=== PATIENT | female | born 1930 | race Caucasian/White ===

== ENCOUNTER 2018-10-25 19:43 | Inpatient (IN) | payer BC ==
[~2018-10-25] VITALS: Ht 162.6 cm; Wt 75.7 kg
[2018-10-25 19:44] VITALS: BP_SYST 134
[2018-10-25] MEDS ORDERED: NACL 0.9% 1,000 ML IV ONE (22:05)
[2018-10-25] MEDS ORDERED: LevALBUTEROL HCL 1.25 MG/0.5 ML *CONC.* VIAL.NEB (XOPENEX CONC.) INH ONE (22:15)
[2018-10-25 22:54] LABS: BASOPHILS # (AUTO) 0.1 K/uL (0.0-0.2); BASOPHILS % (AUTO) 0.3 % (0.0-2.0); HEMATOCRIT 33.3 % (36-48); LYMPHOCYTES # (AUTO) 1.6 K/uL (1.0-5.5); MEAN CORPUSCULAR HEMOGLOBIN 30 pg (27-31); MEAN CORPUSCULAR HGB CONC 33 % (32-36); MEAN CORPUSCULAR VOLUME 91 fL (79.0-98.0); MONOCYTES # (AUTO) 1.1 K/uL (0.0-1.0); MONOCYTES % (AUTO) 6.4 % (1.7-9.3); NEUTROPHILS # (AUTO) 14.5 K/uL (1.8-7.7); NEUTROPHILS % (AUTO) 84.3 % (40.0-70.0); PLATELET COUNT (AUTO) 507 K/uL (130-430); RED BLOOD CELL COUNT(AUTO) 3.67 MIL/uL (4.2-6.2); RED CELL DISTRIBUTION WIDTH 12.4 % (9.0-15.0); WHITE BLOOD COUNT (AUTO) 17.3 K/uL (4.8-10.8)
[2018-10-25 23:10] LABS: ALANINE AMINOTRANSFERASE 4 U/L (12-78); ALBUMIN 2.2 g/dL (3.4-4.8); ANION GAP 11 (5-15); ASPARTATE AMINOTRANSFERASE 12 U/L (10-37); CALCIUM 8.6 mg/dL (8.4-11.0); CHLORIDE 104 mmol/L (98-107); CREATININE 1.36 mg/dL (0.55-1.30); GLUCOSE 133 mg/dL (70-99); SODIUM SERUM 143 mmol/L (136-145); TOTAL BILIRUBIN 0.8 mg/dL (0.0-1.0); UREA NITROGEN, BLOOD 23 mg/dL (8-21)
[2018-10-25 23:13] LABS: POTASSIUM 2.4 mmol/L (3.5-5.1)
[2018-10-25 23:21] LABS: INR 1.1 (0.8-1.2); PROTHROMBIN TIME 11.5 SECS (9.5-12.5)
[2018-10-25] MEDS ORDERED: KCL 20 mEq in 100 mL (PREMIX) 100 ML IV ONE (23:45)
[2018-10-25] MEDS ORDERED: ASPI-1153 PO (23:56)
[2018-10-25] MEDS ORDERED: LORA-258 PO ×3 (23:56)
[2018-10-25] MEDS ORDERED: LEVO112T2 PO (23:56)
[2018-10-25] MEDS ORDERED: FURO-150 PO (23:56)
[2018-10-25] MEDS ORDERED: RANI-362 PO (23:56)
[2018-10-25] MEDS ORDERED: SIMV40TA2 PO (23:56)
[2018-10-25] MEDS ORDERED: COR3.125 PO (23:56)
[2018-10-25] MEDS ORDERED: CLOP300T2 PO (23:56)
[2018-10-25] MEDS ORDERED: PRO20 PO (23:56)
[2018-10-26] VITALS (7 sets, daily range): BP systolic 104–134
[2018-10-26] MEDS ORDERED: LEVOFLOXACIN 500 MG/D5W 100 ML IV ONE
[2018-10-26] MEDS ORDERED: POTASSIUM CHLORIDE 20 MEQ/PKT PACKET PO ONE (00:15)
[2018-10-26] MEDS ORDERED: LORazepam 1 MG TABLET PO ONE (00:30)
[2018-10-26] MEDS ORDERED: ONDANSETRON HCL 4 MG/2 ML VIAL IVP PRN (00:45)
[2018-10-26] MEDS ORDERED: LEVOFLOXACIN 500 MG/D5W 100 ML IV SCH (00:45)
[2018-10-26] MEDS ORDERED: ALBUTEROL SULFATE 0.083% 2.5 MG/3 ML VIAL.NEB INH PRN (00:45)
[2018-10-26] MEDS ORDERED: MORPHINE 4 MG/ML INJ. SYRINGE IVP PRN (00:45)
[2018-10-26] MEDS ORDERED: POTASSIUM CHLORIDE 20 MEQ TAB.PRT.SR PO ONE ×2 (01:30→11:30)
[2018-10-26] MEDS ORDERED: VANCOMYCIN HCL 1,000 MG in NS 250 ML IV ONE (01:30)
[2018-10-26] MEDS ORDERED: VANCOMYCIN HCL 1000 MG/VIAL IV ONE (02:45)
[2018-10-26] MEDS: LEVOTHYROXINE SODIUM 0.112 MG TABLET PO SCH (06:37)
[2018-10-26 08:12] LABS: BASOPHILS # (AUTO) 0.3 K/uL (0.0-0.2); BASOPHILS % (AUTO) 2.4 % (0.0-2.0); EOSINOPHILS % (AUTO) 0.3 % (0.0-4.0); HEMATOCRIT 29.2 % (36-48); LYMPHOCYTES # (AUTO) 1.9 K/uL (1.0-5.5); LYMPHOCYTES % (AUTO) 12.9 % (20.5-51.5); MEAN CORPUSCULAR HEMOGLOBIN 31 pg (27-31); MEAN CORPUSCULAR HGB CONC 34 % (32-36); MEAN CORPUSCULAR VOLUME 92 fL (79.0-98.0); MONOCYTES # (AUTO) 0.7 K/uL (0.0-1.0); MONOCYTES % (AUTO) 4.9 % (1.7-9.3); NEUTROPHILS # (AUTO) 11.6 K/uL (1.8-7.7); PLATELET COUNT (AUTO) 426 K/uL (130-430); RED BLOOD CELL COUNT(AUTO) 3.19 MIL/uL (4.2-6.2); RED CELL DISTRIBUTION WIDTH 12.5 % (9.0-15.0); WHITE BLOOD COUNT (AUTO) 14.5 K/uL (4.8-10.8)
[2018-10-26 08:21] LABS: ANION GAP 10 (5-15); CALCIUM 8.3 mg/dL (8.4-11.0); CHLORIDE 106 mmol/L (98-107); CREATININE 1.33 mg/dL (0.55-1.30); GLUCOSE 98 mg/dL (70-99); SODIUM SERUM 143 mmol/L (136-145); UREA NITROGEN, BLOOD 25 mg/dL (8-21)
[2018-10-26 08:32] LABS: ALBUMIN 1.9 g/dL (3.4-4.8); ASPARTATE AMINOTRANSFERASE 12 U/L (10-37); TOTAL BILIRUBIN 0.7 mg/dL (0.0-1.0)
[2018-10-26 08:43] LABS: ALANINE AMINOTRANSFERASE 5 U/L (12-78)
[2018-10-26] MEDS: CLOPIDOGREL BISULFATE 75 MG TABLET PO SCH (09:37)
[2018-10-26] MEDS: ASPIRIN 81 MG TABLET(ECOTRIN) PO SCH (09:37)
[2018-10-26] MEDS: CARVEDILOL 3.125 MG TABLET (COREG) PO SCH (09:37)
[2018-10-26] MEDS: FLUoxetine HCL 20 MG CAPSULE (PROzac) PO SCH (09:38)
[2018-10-26] MEDS: FUROSEMIDE 20 MG TABLET PO SCH (09:38)
[2018-10-26] MEDS: LORazepam 1 MG TABLET PO SCH ×2 (09:39→20:11)
[2018-10-26 09:41] LABS: NEUTROPHILS % (AUTO) 79.5 % (40.0-70.0)
[2018-10-26] MEDS ORDERED: POTASSIUM CHLORIDE 40 MEQ in NS 250 ML IV ONE (18:30)
[2018-10-26] MEDS: SIMVASTATIN 40 MG TABLET PO SCH (20:10)
[2018-10-26] MEDS: LEVOFLOXACIN 250 MG/D5W 50 ML IV SCH (20:17)
[2018-10-27] MEDS ORDERED: VANCOMYCIN HCL 1 GM/NS PREMIX 250 ML IV ONE (06:15)
[2018-10-27] MEDS: LEVOTHYROXINE SODIUM 0.112 MG TABLET PO SCH (06:25)
[2018-10-27 06:46] LABS: BASOPHILS % (AUTO) 0.4 % (0.0-2.0); EOSINOPHILS # (AUTO) 0.1 K/uL (0.0-0.4); HEMATOCRIT 27.7 % (36-48); HEMOGLOBIN 9.4 g/dL (12.0-16.0); LYMPHOCYTES # (AUTO) 1.7 K/uL (1.0-5.5); LYMPHOCYTES % (AUTO) 15.3 % (20.5-51.5); MEAN CORPUSCULAR HEMOGLOBIN 31 pg (27-31); MEAN CORPUSCULAR HGB CONC 34 % (32-36); MEAN CORPUSCULAR VOLUME 92 fL (79.0-98.0); MONOCYTES % (AUTO) 9.1 % (1.7-9.3); NEUTROPHILS % (AUTO) 74.2 % (40.0-70.0); PLATELET COUNT (AUTO) 420 K/uL (130-430); RED BLOOD CELL COUNT(AUTO) 3.02 MIL/uL (4.2-6.2)
[2018-10-27 06:57] LABS: WHITE BLOOD COUNT (AUTO) 10.8 K/uL (4.8-10.8)
[2018-10-27 07:03] LABS: ANION GAP 9 (5-15); CALCIUM 8.4 mg/dL (8.4-11.0); CHLORIDE 108 mmol/L (98-107); CREATININE 1.23 mg/dL (0.55-1.30); GLUCOSE 96 mg/dL (70-99); POTASSIUM 3.3 mmol/L (3.5-5.1); SODIUM SERUM 143 mmol/L (136-145); UREA NITROGEN, BLOOD 22 mg/dL (8-21)
[2018-10-27 08:00] VITALS: BP_SYST 108
[2018-10-27] MEDS: CLOPIDOGREL BISULFATE 75 MG TABLET PO SCH (10:11)
[2018-10-27] MEDS: LORazepam 1 MG TABLET PO SCH ×2 (10:11→20:30)
[2018-10-27] MEDS: CARVEDILOL 3.125 MG TABLET (COREG) PO SCH (10:11)
[2018-10-27] MEDS: FUROSEMIDE 20 MG TABLET PO SCH (10:12)
[2018-10-27] MEDS: FLUoxetine HCL 20 MG CAPSULE (PROzac) PO SCH (10:12)
[2018-10-27 12:21] VITALS: BP_SYST 127
[2018-10-27 16:42] VITALS: BP_SYST 112
[2018-10-27] MEDS ORDERED: LORazepam 1 MG TABLET PO SCH (18:45)
[2018-10-27] MEDS ORDERED: LORazepam 1 MG TABLET PO PRN (19:00)
[2018-10-27 20:00] VITALS: BP_SYST 120
[2018-10-27] MEDS: LEVOFLOXACIN 250 MG/D5W 50 ML IV SCH (20:30)
[2018-10-27] MEDS: SIMVASTATIN 40 MG TABLET PO SCH (20:30)
[2018-10-27] MEDS: VANCOMYCIN HCL 1 GM/NS PREMIX 250 ML IV SCH (22:53)
[2018-10-28 00:16] VITALS: BP_SYST 114
[2018-10-28] MEDS: LEVOTHYROXINE SODIUM 0.112 MG TABLET PO SCH (06:00)
[2018-10-28 06:28] LABS: BASOPHILS % (AUTO) 0.4 % (0.0-2.0); EOSINOPHILS # (AUTO) 0.2 K/uL (0.0-0.4); EOSINOPHILS % (AUTO) 2.7 % (0.0-4.0); HEMOGLOBIN 9.1 g/dL (12.0-16.0); LYMPHOCYTES # (AUTO) 1.7 K/uL (1.0-5.5); MEAN CORPUSCULAR HEMOGLOBIN 30 pg (27-31); MEAN CORPUSCULAR HGB CONC 33 % (32-36); MEAN CORPUSCULAR VOLUME 91 fL (79.0-98.0); MONOCYTES # (AUTO) 0.7 K/uL (0.0-1.0); MONOCYTES % (AUTO) 10.1 % (1.7-9.3); NEUTROPHILS # (AUTO) 4.1 K/uL (1.8-7.7); NEUTROPHILS % (AUTO) 60.8 % (40.0-70.0); PLATELET COUNT (AUTO) 390 K/uL (130-430); RED BLOOD CELL COUNT(AUTO) 3.07 MIL/uL (4.2-6.2); RED CELL DISTRIBUTION WIDTH 12.9 % (9.0-15.0); WHITE BLOOD COUNT (AUTO) 6.7 K/uL (4.8-10.8)
[2018-10-28 06:41] LABS: ANION GAP 6 (5-15); CALCIUM 8.3 mg/dL (8.4-11.0); CHLORIDE 111 mmol/L (98-107); CREATININE 1.21 mg/dL (0.55-1.30); GLUCOSE 88 mg/dL (70-99); POTASSIUM 3.1 mmol/L (3.5-5.1); SODIUM SERUM 144 mmol/L (136-145); UREA NITROGEN, BLOOD 23 mg/dL (8-21)
[2018-10-28 08:10] VITALS: BP_SYST 120
[2018-10-28] MEDS: ASPIRIN 81 MG TABLET(ECOTRIN) PO SCH (08:34)
[2018-10-28] MEDS: CLOPIDOGREL BISULFATE 75 MG TABLET PO SCH (08:35)
[2018-10-28] MEDS: FUROSEMIDE 20 MG TABLET PO SCH (08:35)
[2018-10-28] MEDS: CARVEDILOL 3.125 MG TABLET (COREG) PO SCH (08:35)
[2018-10-28] MEDS: FLUoxetine HCL 20 MG CAPSULE (PROzac) PO SCH (08:35)
[2018-10-28] MEDS: LORazepam 1 MG TABLET PO SCH ×2 (08:39→20:10)
[2018-10-28] MEDS ORDERED: POTASSIUM CHLORIDE 40 MEQ, LIDOCAINE JECT 2% PF 100 MG 50 MG in NS 250 ML IV ONE (10:00)
[2018-10-28 12:42] VITALS: BP_SYST 102
[2018-10-28 16:15] VITALS: BP_SYST 111
[2018-10-28 20:00] VITALS: BP_SYST 116
[2018-10-28] MEDS: LEVOFLOXACIN 250 MG/D5W 50 ML IV SCH (20:09)
[2018-10-28] MEDS: SIMVASTATIN 40 MG TABLET PO SCH (20:10)
[2018-10-28] MEDS: VANCOMYCIN HCL 1 GM/NS PREMIX 250 ML IV SCH (22:12)
[2018-10-28 23:41] VITALS: BP_SYST 117
[2018-10-29] MEDS: LEVOTHYROXINE SODIUM 0.112 MG TABLET PO SCH (06:00)
[2018-10-29 07:46] VITALS: BP_SYST 115
[2018-10-29 08:00] LABS: ANION GAP 8 (5-15); CALCIUM 8.2 mg/dL (8.4-11.0); CHLORIDE 109 mmol/L (98-107); CREATININE 1.32 mg/dL (0.55-1.30); GLUCOSE 112 mg/dL (70-99); POTASSIUM 3.6 mmol/L (3.5-5.1); SODIUM SERUM 144 mmol/L (136-145); UREA NITROGEN, BLOOD 25 mg/dL (8-21)
[2018-10-29] MEDS: CLOPIDOGREL BISULFATE 75 MG TABLET PO SCH (09:15)
[2018-10-29] MEDS: LORazepam 1 MG TABLET PO SCH (09:15)
[2018-10-29] MEDS: FLUoxetine HCL 20 MG CAPSULE (PROzac) PO SCH (09:16)
[2018-10-29] MEDS: CARVEDILOL 3.125 MG TABLET (COREG) PO SCH (09:16)
[2018-10-29] MEDS: FUROSEMIDE 20 MG TABLET PO SCH (09:16)
[2018-10-29 09:51] VITALS: BP_SYST 106
[2018-10-29] MEDS ORDERED: LEVO250T2 PO (10:02)
[2018-10-29] MEDS ORDERED: ALBU8.5H8 INH (10:04)
[2018-10-29 11:59] VITALS: BP_SYST 106
== END 2018-10-29 13:55 | disposition home or self-care (01) | DRG 871 ==
LOC: SED 19:43 → STU 10-26 00:31
PROVIDERS: ADMIT Internal Medicine; ATTEND Internal Medicine
DX: A41.9 Sepsis, unspecified organism (principal); J18.1 Lobar pneumonia, unspecified organism; E43 Unspecified severe protein-calorie malnutrition; E86.0 Dehydration; E03.9 Hypothyroidism, unspecified; E87.6 Hypokalemia; I25.10 Atherosclerotic heart disease of native coronary artery without angina pectoris; F03.90 Unspecified dementia, unspecified severity, without behavioral disturbance, psychotic disturbance, mood disturbance, and anxiety; I12.9 Hypertensive chronic kidney disease with stage 1 through stage 4 chronic kidney disease, or unspecified chronic kidney disease; N18.9 Chronic kidney disease, unspecified; D64.9 Anemia, unspecified; Z88.0 Allergy status to penicillin; Z68.28 Body mass index [BMI] 28.0-28.9, adult; Z88.2 Allergy status to sulfonamides; Z91.010 Allergy to peanuts; Z79.899 Other long term (current) drug therapy; Z79.82 Long term (current) use of aspirin; Z82.49 Family history of ischemic heart disease and other diseases of the circulatory system
CPT/HCPCS: 36415; 71045; 80048; 80053; 83605; 83735-TC; 84484; 85025; 85610-TC; 85730-TC; 87040-TC; 93005; 94640; 96361; 96365; 96368; 97110-GP; 97530-GP; 99285; G0378; J1956; J3370; J3480; J7030; J7050; J7612